=== PATIENT | male | born 1950 | race Caucasian/White ===

== ENCOUNTER 2018-03-22 08:37 | Day surgery (SDC) | payer OTHER ==
[~2018-03-22 08:37] MED LIST: CEFAZOLIN 1 GM/D5W RTU 1 GM/50 ML RTUPB IV PRN; DIAZEPAM 5 MG TABLET PO PRN; OXYCODONE-ACETAMINOPHEN 5-325 MG TABLET PO PRN
[2018-03-22] MEDS ORDERED: OXYCODONE-ACETAMINOPHEN 5-325 MG TABLET ONE (08:57)
[2018-03-22] MEDS ORDERED: DIAZEPAM 5 MG TABLET ONE (08:57)
[2018-03-22] MEDS ORDERED: CEFAZOLIN 1 GM/D5W RTU 1 GM/50 ML RTUPB IV ONE (08:58)
--- NOTE | 2018-03-22 09:30 | RADIOLOGY REPORT (SQ) ---
EXAM DESCRIPTION: CHEST SINGLE VIEW COMPLETED DATE/TIME: 03/22/2018 9:19 am REASON FOR STUDY: PREOP COMPARISON: None. EXAM PARAMETERS: NUMBER OF VIEWS: One view. TECHNIQUE: Single frontal radiographic view of the chest acquired. RADIATION DOSE: NA LIMITATIONS: None. FINDINGS: LUNGS AND PLEURA: New linear left basilar opacities, likely atelectasis. Questionable tra ce left effusion. Unremarkable right hemithorax. No pneumothorax. MEDIASTINUM AND HILAR STRUCTURES: No masses. Contour normal. HEART AND VASCULAR STRUCTURES: Heart normal in size. Normal vasculature. BONES: No acute findings. HARDWARE: None in the chest. OTHER: No other significant finding. IMPRESSION: New linear left basilar opacities, likely atelectasis. TECHNICAL DOCUMENTATION: JOB ID: [id number] [employer]- All Rights Reserved Reading location - IP/workstation name: [email or web address]
[2018-03-22 10:05] LABS: ANION GAP 7 (5-19); BLOOD UREA NITROGEN 12 mg/dL (7-20); CALCIUM 9.5 mg/dL (8.4-10.2); CARBON DIOXIDE 30 mmol/L (22-30); CHLORIDE 105 mmol/L (98-107); GLUCOSE 97 mg/dL (75-110); POTASSIUM 4.6 mmol/L (3.6-5.0); SODIUM 141.7 mmol/L (137-145)
[2018-03-22 10:09] LABS: HEMOGLOBIN 11.6 g/dL (13.5-17.0); MEAN CORPUSCULAR HGB CONC 33.1 g/dL (32.0-36.0); MEAN CORPUSCULAR VOLUME 88 fl (80-97); PLATELET COUNT 368 10^3/uL (150-450); RED CELL DISTRIBUTION WIDTH 14.6 % (11.5-14.0); WHITE BLOOD COUNT 4.9 10^3/uL (4.0-10.5)
[2018-03-22] MEDS ORDERED: LIDOCAINE 0.5% INJ-PF (5 MG/ML) 50 ML SDV ONE (10:29)
[2018-03-22] MEDS ORDERED: MIDAZOLAM 2 MG/2 ML INJ ONE (10:29)
[2018-03-22] MEDS ORDERED: FENTANYL CITRATE INJ/PF 100 MCG/2 ML AMPUL ONE (10:30)
[2018-03-22] MEDS ORDERED: BACITRACIN INJ 50,000 UNIT VIAL ONE (10:30)
--- NOTE | 2018-03-22 11:46 | Discharge Summary ---
Discharge Summary (SDC) - Discharge Final Diagnosis: Colon cancer Date of Surgery: 03/22/18 Discharge Date: 03/22/18 Condition: Good Treatment or Instructions: Discharge home [after recovery per ASU criteria]. Diet , as tolerated, when fully awake advance as tolerated. Activities within moderation encouraged. Follow up in my office by appointment in about [1 week]. Call for appointment. Leave wounds [covered], [keep clean and dry, until office visit in 1 week]. Hold of on school/work [until evaluation in office]. Meds per med rec. OTC pain meds. May shower [in 48 hrs], [try to keep operated area as dry as possible]. Referrals: SERGIO GHOTRA MD [Primary Care Provider] - Discharge Diet: As Tolerated Respiratory Treatments at Home: Deep Breathing/Coughing Discharge Activity: Activity As Tolerated Report the Following to Your Physician Immediately: Shortness of Breath, Unusual Bleeding
--- NOTE | 2018-03-22 12:36 | Operative Report ---
Operative Report DATE OF SURGERY: 03/22/18 PREOPERATIVE DIAGNOSIS: Colon cancer POSTOPERATIVE DIAGNOSIS: Colon cancer OPERATION: 1. Ultrasound evaluation of the right internal jugular vein. 2. Insertion of Port-A-Cath via real-time access in the right internal jugular vein. 3. Angiogram and interpretation. SURGEON: DEBBIE MENDOZA DIGITAL MEDIA SALES CONSULTANT: None. ANESTHESIA: Moderate Sedation TISSUE REMOVED OR ALTERED: Not applicable. COMPLICATIONS: None. ESTIMATED BLOOD LOSS: 5 mL. INTRAOPERATIVE FINDINGS: Of a satisfactory right internal jugular vein to support catheter. This is missed to be 1.2 cm in diameter. Satisfactory aspiration of blood from the single lumen and flow of contrast through the right atrium, ventricle and pulmonary outflow tract. Final x-ray showed no sign of complication. Satisfactory position of catheter. PROCEDURE: After obtaining informed consent, the patient was taken to the Zoology Technical Officer and positioned supine. The [right] neck and chest were prepared with chlorhexidine and draped out with sterile linen. After the " universal timeout", in which it was verified that the patient continued to receive antibiotic, the procedure commenced. A steriley sheathed ultrasound probe was used to evaluate the [right] internal jugular vein. Local anesthesia was infiltrated adjacent to the probe. Access into the [right] internal jugular vein was obtained using a micropuncture needle, followed by micropuncture wire and then a micropuncture catheter. This was followed by introduction of a 0.035 guidewire the tip of which was placed down into the inferior vena cava . The port sites was marked , locally anesthetized and incision made. Dissection now proceeded to the deep subcutaneous subcutaneous tissues so that a pocket for the port was made. Meticulous hemostasis was secured and the catheter was tunneled between the 2 incisions. Proximally, the catheter was now positioned using a peel-away sheath. Distally the catheter was tailored to an appropriate length and then mated to the port using the contained fixating device. The port was now placed in the pocket and the catheter optimally positioned. The port was accessed with a Vaca needle and an angiogram done under digital subtraction. The findings as dictated. With adequate and satisfactory positioning, both lumens of the chamber were irrigated with heparinized solution. The wounds were now closed using interrupted 3-0 PDS to the subcutaneous tissues and a continuous subcuticular suture of 4-0 Monocryl to the skin. These are reinforced with Steri-Strips over benzoin and then dressings applied. Time: 0.1 Minute. Dose:7.05 m Gy Contrast: 5 mls. Isovue 300. Copies of the dictated operative report for Dr. Debbie Clayton MD.
[2018-03-22 12:51] VITALS: BP 146/85
--- NOTE | 2018-03-22 14:28 | RADIOLOGY REPORT (SQ) ---
EXAM DESCRIPTION: PORTACATH INSERTION; GUIDANCE FLUOROSCOPIC COMPLETED DATE/TIME: 03/22/2018 12:02 pm REASON FOR STUDY: COLON CA C18.2 MALIGNANT NEOPLASM OF ASCENDING COLON COMPARISON: AP chest 03/22/2018 FLUOROSCOPY TIME: Less than 5 seconds 17 series of digital images saved to PACS. TECHNIQUE: Intra-operative images acquired during surgical procedure to evaluate progress. NUMBER OF IMAGES: 17 digital images LIMITATIONS: None. FINDINGS: Intra procedural imaging and fluoro during placement of a right-sided permanent central li ne, with the tip in the superior vena cava. Please see the operative report for further details IMPRESSION: Intra procedural imaging and fluoro COMMENT: Quality ID 145: Final reports for procedures using fluoroscopy that document radiation exp osure indices, or exposure time and number of fluorographic images (if radiation exposure indices are not available) Please consult full operative report of the attending physician for description of the procedure. TECHNICAL DOCUMENTATION: JOB ID: [id number] [employer]- All Rights Reserved Reading location - IP/workstation name: [email or web address]
--- NOTE | 2018-03-22 14:28 | RADIOLOGY REPORT (SQ) ---
EXAM DESCRIPTION: PORTACATH INSERTION; GUIDANCE FLUOROSCOPIC COMPLETED DATE/TIME: 03/22/2018 12:02 pm REASON FOR STUDY: COLON CA C18.2 MALIGNANT NEOPLASM OF ASCENDING COLON COMPARISON: AP chest 03/22/2018 FLUOROSCOPY TIME: Less than 5 seconds 17 series of digital images saved to PACS. TECHNIQUE: Intra-operative images acquired during surgical procedure to evaluate progress. NUMBER OF IMAGES: 17 digital images LIMITATIONS: None. FINDINGS: Intra procedural imaging and fluoro during placement of a right-sided permanent central li ne, with the tip in the superior vena cava. Please see the operative report for further details IMPRESSION: Intra procedural imaging and fluoro COMMENT: Quality ID 145: Final reports for procedures using fluoroscopy that document radiation exp osure indices, or exposure time and number of fluorographic images (if radiation exposure indices are not available) Please consult full operative report of the attending physician for description of the procedure. TECHNICAL DOCUMENTATION: JOB ID: [id number] [employer]- All Rights Reserved Reading location - IP/workstation name: [email or web address]
== END 2018-03-22 12:51 | disposition home or self-care (01) ==
LOC: CCL 08:37
PROVIDERS: ATTEND Surgery
DX: C18.2 Malignant neoplasm of ascending colon (principal); I10 Essential (primary) hypertension; E78.00 Pure hypercholesterolemia, unspecified; Z87.39 Personal history of other diseases of the musculoskeletal system and connective tissue; Z87.442 Personal history of urinary calculi; Z79.899 Other long term (current) drug therapy
CPT/HCPCS: 36415; 85027; 80048; 36561; 76937; 77001; 71045; C1788; J2250; J3490 ×2; J0690; J3010; J1644

== ENCOUNTER → 2018-11-17 | Outpatient (CLI) | payer OTHER ==
--- NOTE | 2018-11-17 09:49 | RADIOLOGY REPORT (SQ) ---
EXAM DESCRIPTION: CT ABD/PELVIS WITH IV ORAL COMPLETED DATE/TIME: 11/17/2018 7:56 am REASON FOR STUDY: (C18.2)MALIGNANT NEOPLASM OF ASCENDING COLON C18.2 MALIGNANT NEOPLASM OF ASCENDIN G COLON COMPARISON: None. TECHNIQUE: CT scan of the abdomen and pelvis performed using helical scanning technique with dynamic intravenous contrast injection. Patient was given oral contrast. Images reviewed with lung, soft ti ssue, and bone windows. Reconstructed coronal and sagittal MPR images reviewed. Delayed images for ev aluation of the urinary system also acquired. All images stored on PACS. All CT scanners at this facility use dose modulation, iterative reconstruction, and/or weight based d osing when appropriate to reduce radiation dose to as low as reasonably achievable (ALARA). [facility]: Dose Right [facility]: CareDose [facility]: Dose Right [facility]: Teradose 4D [facility]: [employer] CONTRAST TYPE AND DOSE: contrast/concentration: Isovue 350.00 mg/ml; Total Contrast Delivered: 86.0 ml; Total Saline Delivered: 69.0 ml RENAL FUNCTION: Creatinine 1.2 RADIATION DOSE: . LIMITATIONS: None. FINDINGS: LOWER CHEST: See separate report of the CT of the chest. LIVER: Subcentimeter hypodense hepatic lesion within the left lobe, likely cyst but difficult to janae acterize secondary to size. Findings stable compared to 02/12/2016. No additional discrete hepatic lesions. No intrahepatic ductal dilation. Normal liver size. SPLEEN: Normal size. No focal lesions. PANCREAS: Fatty replacement. No discrete mass. GALLBLADDER: No identified stones by CT criteria. No inflammatory changes to suggest cholecystitis. ADRENAL GLANDS: No significant masses or asymmetry. RIGHT KIDNEY AND URETER: Intermediate density exophytic lesion off the lower pole measuring 2.8 cm (s eries 3, image 47), decreased in size from exam dated 02/12/2016 and likely representing proteinaceou s cyst. Punctate nonobstructing stone. No hydronephrosis or hydroureter. LEFT KIDNEY AND URETER: No solid masses. No significant calcifications. No hydronephrosis or hydr oureter. AORTA AND VESSELS: No aneurysm. No dissection. Celiac, SMA, bilateral renals and CASSIE are opacified without high-grade stenosis. There is a left-sided IVC. RETROPERITONEUM: No retroperitoneal adenopathy, hemorrhage or masses. BOWEL AND PERITONEAL CAVITY: No focal bowel wall thickening. Postsurgical changes from the right hem icolectomy. No evidence of intestinal obstruction. Surgical clips at the GE junction. APPENDIX: Surgically absent. PELVIS: No mass. No free fluid. Normal bladder. ABDOMINAL WALL: No masses. No hernias. BONES: No acute bony abnormality. No discrete osseous lesions. Mild lower lumbar facet arthropathy. OTHER: No other significant finding. IMPRESSION: 1. Postsurgical changes from the right hemicolectomy without definitive evidence of met astatic disease within the abdomen or pelvis. 2. Decreased size of a intermediate exophytic right lower pole renal lesion, likely representing pro teinaceous cyst. 3. No other evidence of acute intra-abdominal/pelvic process. TECHNICAL DOCUMENTATION: JOB ID: [id number] Quality ID # [id number]: Final reports with documentation of one or more dose reduction techniques (e.g., Au tomated exposure control, adjustment of the mA and/or kV according to patient size, use of iterative reconstruction technique) 2010 [employer]- All Rights Reserved Reading location - IP/workstation name: [email or web address]
--- NOTE | 2018-11-17 09:56 | RADIOLOGY REPORT (SQ) ---
EXAM DESCRIPTION: CT CHEST WITH COMPLETED DATE/TIME: 11/17/2018 7:56 am REASON FOR STUDY: (C18.2)MALIGNANT NEOPLASM OF ASCENDING COLON C18.2 MALIGNANT NEOPLASM OF ASCENDIN G COLON COMPARISON: 02/12/2016 TECHNIQUE: CT scan of the chest performed using helical scanning technique with dynamic intravenous contrast injection. Images reviewed with lung, soft tissue and bone windows. Reconstructed coronal and sagittal MPR and MIP images reviewed. All images stored on PACS. All CT scanners at this facility use dose modulation, iterative reconstruction, and/or weight based d osing when appropriate to reduce radiation dose to as low as reasonably achievable (ALARA). [facility]: Dose Right [facility]: CareDose [facility]: Dose Right [facility]: Teradose 4D [facility]: 2Peer ([employer]) CONTRAST TYPE AND DOSE: See abdomen RENAL FUNCTION: See abdomen RADIATION DOSE: CT Rad equipment meets quality standard of care and radiation dose reduction techniq ues were employed. CTDIvol: 4.8 - 5.4 mGy. DLP: 792 mGy-cm. . LIMITATIONS: None. FINDINGS: LUNGS AND PLEURA: No opacities, nodules, masses. No pneumothorax. No effusions. HILAR AND MEDIASTINAL STRUCTURES: No identified masses or abnormal nodes. HEART AND VASCULAR STRUCTURES: Mild dilation of the ascending aorta measuring up to 3.8 cm. No disse ction. No central pulmonary emboli. No pericardial effusion. HARDWARE: Right-sided chest port with catheter tip at cavoatrial junction. UPPER ABDOMEN: See separate report of the CT of the abdomen. THYROID AND OTHER SOFT TISSUES: No masses. No adenopathy. BONES: No significant finding. OTHER: No other significant finding. IMPRESSION: 1. No evidence of metastatic disease within the thorax. 2. Mild dilation of the ascending aorta measuring up to 3.8 cm. No other evidence of acute intratho racic process. TECHNICAL DOCUMENTATION: JOB ID: [id number] Quality ID # [id number]: Final reports with documentation of one or more dose reduction techniques (e.g., Au tomated exposure control, adjustment of the mA and/or kV according to patient size, use of iterative reconstruction technique) 2010 [employer]- All Rights Reserved Reading location - IP/workstation name: [email or web address]
== END ==
LOC: RAD 07:04
PROVIDERS: ATTEND Internal Medicine
DX: C18.2 Malignant neoplasm of ascending colon (principal); N20.0 Calculus of kidney
CPT/HCPCS: 71260; 74177; 82565